=== PATIENT | female | born 1970 | race Caucasian/White ===

== ENCOUNTER 2021-06-03 16:23 | Emergency (ER) | payer OTHER, SELFPAY ==
--- NOTE | ~2021-06-03 | XR_ITS ---
XR finger 2nd RT min 2V 06/03/2021 16:47 INDICATION: Right second finger pain after trauma PROCEDURE: 4 views right second finger COMPARISON: No prior studies for comparison. FINDINGS: Fracture, dislocation or subluxation is not identified. 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 There is mild soft tissue swelling dorsal to the PIP joint. No foreign bodies are identified. IMPRESSION: 1: No acute fracture. Reviewed, dictated and finalized at location A. IMPRESSION: 1: No acute fracture.
[2021-06-03 16:32] VITALS: BP 121/78; PULSE 86; RESP 20; TEMP 36.7; O2SAT 99
[2021-06-03 16:39] VITALS: BP 121/78; PULSE 86; RESP 20; TEMP 36.7; O2SAT 99
--- NOTE | 2021-06-03 16:39 | ED.UPPEXIN ---
HPI - Extremity Injury (Upper) General Chief Complaint: Extremity Injury, Upper Stated Complaint: right hand finger injury Time Seen by Provider: 06/03/21 16:39 Source: patient and RN notes reviewed Mode of arrival: ambulatory Limitations: no limitations History of Present Illness HPI narrative: 51-year-old female presents concern for pain, swelling, decreased range of motion of the second digit of right hand. 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 Denies lacerations, warmth, redness, abrasions. Denies intervention. MD complaint: injury to: right and hand Related Data Home Medications Medication Instructions Recorded Confirmed amlodipine 06/03/21 cetirizine mg 06/03/21 citalopram mg 06/03/21 dextroamphetamine-amphetamine 06/03/21 lisinopril 06/03/21 omeprazole 06/03/21 Allergies Allergy/AdvReac Type Severity Reaction Status Date / Time No Known Allergies Allergy Verified 06/03/21 16:37 Review of Systems Review of Systems: CONSTITUTIONAL: Denies malaise, chills, sweats, or fever. SKIN: Denies patient's, abrasions, redness, warmth MUSCULOSKELETAL: Reports pain, swelling, decreased range of motion of the second digit of the right hand NEUROLOGIC: Denies numbness, weakness All systems reviewed & are unremarkable except as noted in HPI and below PMFSH Comments At time of signature, agree with nursing past medical, surgical, social and family history. There is no relevant family history pertinent to the presenting complaint Exam Narrative: GENERAL: Well-appearing, well-nourished, and in no acute distress. HEAD: Normocephalic EYES: PERRLA, conjunctivae clear NECK: Supple. CHEST: Speaks in full sentences. No respiratory distress. HEART: Regular rate and rhythm. Normal and equal peripheral pulses. EXTREMITIES: Second digit of right hand has normal strength and sensation. Limited range of motion with flexion, extension normal. No clubbing, cyanosis noted. Moderate edema, tenderness to MIP and DIP joints. Skin intact. Normal digital cascade with flexion of fingers, median, ulnar and radial nerve intact. Normal sensation of each side of finger. Can perform 'okay' sign, 'cross over finger test of index and middle fingers' and 'thumbs up' sign. No scissoring. Normal thumb opposition. Good capillary refill and radial pulse. Distal capillary refill less than 3 seconds. SKIN: Warn, dry, intact, pink. No rash NEURO: Alert and oriented x3. PSYCH: Normal mood and affect Course Course Emergency Course: Patient is aware of diagnosis, understands and agrees to treatment plan. Anticipatory guidance given. Patient agrees to follow-up as directed and is aware of reasons to seek care at the emergency department. Portions of this record may have been created with voice recognition software Vital Signs Vital signs: Vital Signs Temperature 98.0 F 06/03/21 16:32 Pulse Rate 86 06/03/21 16:32 Respiratory Rate 20 06/03/21 16:32 Blood Pressure 121/78 06/03/21 16:32 Pulse Oximetry 99 06/03/21 16:32 Temperature 98.0 F 06/03/21 16:32 Pulse Rate 86 06/03/21 16:32 Respiratory Rate 20 06/03/21 16:32 Blood Pressure 121/78 06/03/21 16:32 Pulse Oximetry 99 06/03/21 16:32 Reviewed. MDM - Extremity Injury (Upper) MDM Narrative Medical decision making narrative: Patients injury and pain is consistent with musculoskeletal etiology. No signs of neurological or vascular compromise on exam. Compartments and tissues are soft without signs of compartment syndrome. Pain is felt appropriate for further evaluation on an outpatient basis. Critical Care Time Critical Care Time Critical Care Time: No Discharge Plan Discharge Clinical Impression: Finger sprain Qualifiers: Encounter type: initial encounter Finger: index finger Sprain of finger site: unspecified site Laterality: right Qualified Code(s): S63.610A - Unspecified sprain of right index finger, initial encounter Jonah
== END 2021-06-03 17:00 | disposition home or self-care (01) ==
PROVIDERS: Emergency Provider Nurse Practitioner; PCP Nurse Practitioner Family
DX: S63.610A Unspecified sprain of right index finger, initial encounter (principal); W23.0XXA Caught, crushed, jammed, or pinched between moving objects, initial encounter
CPT/HCPCS: 29130; 73140; 99203; G0463